=== PATIENT | female | born 1975 | race Caucasian/White ===

== ENCOUNTER 2017-03-23 22:28 | Emergency (ER) | payer OTHER ==
[~2017-03-23] VITALS: Ht 152.4 cm; Wt 113.6 kg
[2017-03-23] MEDS ORDERED: PERCOCET 5/31 TABLET PO (23:43)
[2017-03-24 00:03] VITALS: BP 121/90
== END 2017-03-24 00:04 | disposition home or self-care (01) ==
LOC: EME 22:28 → EXP 22:28
DX: S76.011A Strain of muscle, fascia and tendon of right hip, initial encounter (principal); X50.9XXA Other and unspecified overexertion or strenuous movements or postures, initial encounter; Y93.89 Activity, other specified; Y92.34 Swimming pool (public) as the place of occurrence of the external cause; Z96.649 Presence of unspecified artificial hip joint
CPT/HCPCS: 73502; 99281; 99283